=== PATIENT | male | born 1955 | race Caucasian/White ===

== ENCOUNTER → 2018-01-12 16:39 | Outpatient (REF) | payer OTHER, SELFPAY ==
[2018-01-12 20:46] LABS: ALT 34 U/L (12-78); AST 28 U/L (15-37); Albumin 4.2 g/dL (3.4-5.0); Alkaline Phosphatase 64 U/L (46-116); Anion Gap 7.7 mmol/L (3-11); BUN 10 mg/dL (7-18); Bilirubin, Total 0.2 mg/dL (0.2-1.0); CO2 29.3 mmol/L (21.0-32.0); CREATININE 1.04 mg/dL (0.70-1.30); Calcium 9.1 mg/dL (8.5-10.1); Chloride 102 mmol/L (98-107); Creatine Kinase 353 U/L (39-308); Glucose 93 mg/dL (70-100); Potassium 4.5 mmol/L (3.5-5.1); Sodium 139 mmol/L (136-145); Total Protein 7.3 g/dL (6.4-8.2)
[2018-01-16 11:31] LABS: PSA, Screening 0.5 ng/ml (0-4.5)
== END ==
LOC: NCHCN 16:39
PROVIDERS: PCP Family Medicine; Visit Provider Family Medicine
DX: Z00.00 Encounter for general adult medical examination without abnormal findings (principal); E78.5 Hyperlipidemia, unspecified; I10 Essential (primary) hypertension
CPT/HCPCS: 80053; 82550; 84153

== ENCOUNTER 2018-08-08 02:45 | Outpatient (CLI) | payer OTHER, SELFPAY ==
[2018-08-08 09:53] LABS: Cholesterol 151 mg/dL (50-200); HDL Cholesterol 45 mg/dL (40-60); LDL CHOLESTEROL 81 mg/dL (<100); Triglyceride 133 mg/dL (30-150)
[2018-08-08 10:08] LABS: Creatine Kinase 131 U/L (39-308)
== END 2018-08-08 03:05 ==
PROVIDERS: PCP Family Medicine; Visit Provider Family Medicine
DX: I25.10 Atherosclerotic heart disease of native coronary artery without angina pectoris (principal); E78.5 Hyperlipidemia, unspecified
CPT/HCPCS: 36415; 80061; 82550; 83721

== ENCOUNTER 2019-02-22 02:23 | Outpatient (CLI) | payer OTHER, SELFPAY ==
[2019-02-22 13:23] LABS: ALT 40 U/L (16-63); AST 21 U/L (15-37); Albumin 4.2 g/dL (3.4-5.0); Alkaline Phosphatase 58 U/L (46-116); Anion Gap 7.9 mmol/L (3-11); BUN 16 mg/dL (7-18); Bilirubin, Total 0.4 mg/dL (0.2-1.0); CO2 30.1 mmol/L (21.0-32.0); CREATININE 1.07 mg/dL (0.70-1.30); Calcium 9.5 mg/dL (8.5-10.1); Calculated LDL 104 mg/dL; Chloride 102 mmol/L (98-107); Cholesterol 188 mg/dL (50-200); Glucose 99 mg/dL (70-100); HDL Cholesterol 70 mg/dL (40-60); Potassium 4.9 mmol/L (3.5-5.1); Sodium 140 mmol/L (136-145); Total Protein 7.3 g/dL (6.4-8.2); Triglyceride 72 mg/dL (30-150)
[2019-02-23 10:36] LABS: PSA, Screening 0.6 ng/ml (0-4.5)
== END 2019-02-22 02:43 ==
PROVIDERS: PCP Family Medicine; Visit Provider Family Medicine
DX: Z00.00 Encounter for general adult medical examination without abnormal findings (principal); Z13.220 Encounter for screening for lipoid disorders; Z13.228 Encounter for screening for other metabolic disorders; Z12.5 Encounter for screening for malignant neoplasm of prostate
CPT/HCPCS: 36415; 80053; 80061; 84153

== ENCOUNTER 2020-06-05 09:38 | Outpatient (REF) | payer OTHER, SELFPAY ==
[2020-06-05 18:58] LABS: ALT 41 U/L (16-63); AST 26 U/L (15-37); Albumin 4.2 g/dL (3.4-5.0); Alkaline Phosphatase 57 U/L (46-116); Anion Gap 9.4 mmol/L (3-11); BUN 16 mg/dL (7-18); Bilirubin, Total 0.2 mg/dL (0.2-1.0); CO2 27.6 mmol/L (21.0-32.0); Chloride 102 mmol/L (98-107); Glucose 85 mg/dL (74-106); Potassium 3.9 mmol/L (3.5-5.1); Sodium 139 mmol/L (136-145); Total Protein 7.4 g/dL (6.4-8.2)
[2020-06-06 23:14] LABS: PSA, Screening 0.6 ng/mL (0.0-4.5)
== END 2020-06-05 09:58 ==
LOC: NCHCN 09:38
PROVIDERS: PCP Family Medicine; Visit Provider Family Medicine
DX: Z00.00 Encounter for general adult medical examination without abnormal findings (principal)
CPT/HCPCS: 80053; 84153

== ENCOUNTER 2022-06-15 09:45 | Outpatient (REF) | payer MEDICARE, BC, SELFPAY ==
[2022-06-15 16:44] LABS: HCT 38.4 % (40.0-50.0); HGB 12.9 g/dL (13.5-17.5); MCH 32.3 pg (27.0-33.0); MCHC 33.6 % (32.0-36.0); MCV 96 fL (80-95); MPV 12.8 fL (8.0-11.0); Platelet Count 215 10^3/uL (130-400); RBC 3.99 10^6/uL (4.36-5.78); RDW 13.7 % (11.8-14.1); RDW-SD 48.7 fL; WBC 5.47 10^3/uL (4.4-10.8)
[2022-06-15 16:59] LABS: ALT 29 U/L (16-63); AST 33 U/L (15-37); Albumin 4.4 g/dL (3.4-5.0); Alkaline Phosphatase 59 U/L (46-116); Anion Gap 6.9 mmol/L (3-11); BUN 19 mg/dL (7-18); Bilirubin, Total 0.4 mg/dL (0.2-1.0); CO2 30.1 mmol/L (21.0-32.0); CREATININE 1.1 mg/dL (0.70-1.30); Calcium 9.1 mg/dL (8.5-10.1); Calculated LDL 70 mg/dL (<100); Chloride 102 mmol/L (98-107); Cholesterol 154 mg/dL (<200); Estimated GFR 74.96 (mL/min/1.73m2); Glucose 104 mg/dL (74-106); HDL Cholesterol 69 mg/dL (40-60); Potassium 4.8 mmol/L (3.5-5.1); Sodium 139 mmol/L (136-145); Total Protein 7.7 g/dL (6.4-8.2); Triglyceride 75 mg/dL (<150)
[2022-06-16 10:37] LABS: Vitamin B12 274 pg/mL (193-986)
[2022-06-16 18:15] LABS: PSA, Screening 0.7 ng/mL (<=4.5)
[2022-06-16 21:03] LABS: Estimated Average Glucose 105 mg/dL; Hemoglobin A1C 5.3 % (<5.7)
== END 2022-06-15 09:46 | disposition home or self-care (01) ==
LOC: NCHCN 09:45
PROVIDERS: PCP Family Medicine; Visit Provider Family Medicine
DX: I25.10 Atherosclerotic heart disease of native coronary artery without angina pectoris (principal); E78.5 Hyperlipidemia, unspecified; I10 Essential (primary) hypertension; D64.9 Anemia, unspecified; Z12.5 Encounter for screening for malignant neoplasm of prostate; Z79.899 Other long term (current) drug therapy
CPT/HCPCS: 80053; 80061; 84153; 85027; 82607; 82746; 83036

== ENCOUNTER 2023-06-21 12:36 | Outpatient (REF) | payer MEDICARE, OTHER, SELFPAY ==
[2023-06-21 15:25] LABS: Abs Immature Grans 0.02 10^3/uL (0.0-0.06); Absolute Basophil Count 0.06 10^3/uL (0.0-0.2); Absolute Eosinophil Count 0.09 10^3/uL (0.0-0.7); Absolute Lymphocyte Count 1.51 10^3/uL (1.2-3.4); Absolute Monocyte Count 0.52 10^3/uL (0.1-0.8); Absolute Neutrophil Count 4.95 10^3/uL (1.2-6.7); Basophils % 0.8; Eosinophils % 1.3; HCT 39.7 % (40.0-50.0); HGB 12.9 g/dL (13.5-17.5); Immature Grans % 0.3; Lymphocytes % 21.1; MCHC 32.5 % (32.0-36.0); MCV 95 fL (80-95); MPV 11.5 fL (8.0-11.0); Monocytes % 7.3; Neutrophils % 69.2; Platelet Count 232 10^3/uL (130-400); RBC 4.16 10^6/uL (4.36-5.78); RDW 13.3 % (11.8-14.1); RDW-SD 46.8 fL; WBC 7.15 10^3/uL (4.4-10.8)
[2023-06-21 15:54] LABS: Hemoglobin A1C 5.7 % (<5.7)
[2023-06-21 16:03] LABS: ALT 33 U/L (16-63); AST 26 U/L (15-37); Albumin 4.1 g/dL (3.4-5.0); Alkaline Phosphatase 52 U/L (46-116); Anion Gap 4.7 mmol/L (3-11); BUN 27 mg/dL (7-18); Bilirubin, Total 0.5 mg/dL (0.2-1.0); CO2 29.3 mmol/L (21.0-32.0); CREATININE 1.7 mg/dL (0.70-1.30); Calcium 9.4 mg/dL (8.5-10.1); Calculated LDL 123 mg/dL (<100); Chloride 102 mmol/L (98-107); Cholesterol 214 mg/dL (<200); Estimated GFR 44.18 (mL/min/1.73m2); Glucose 108 mg/dL (74-106); HDL Cholesterol 66 mg/dL (40-60); Potassium 5.3 mmol/L (3.5-5.1); Sodium 136 mmol/L (136-145); Total Protein 7.8 g/dL (6.4-8.2); Triglyceride 128 mg/dL (<150)
== END 2023-06-21 12:37 | disposition home or self-care (01) ==
LOC: NCHCN 12:36
PROVIDERS: PCP Family Medicine; Visit Provider Family Medicine
DX: D64.9 Anemia, unspecified (principal); I25.10 Atherosclerotic heart disease of native coronary artery without angina pectoris; R73.09 Other abnormal glucose
CPT/HCPCS: 80053; 80061; 83036; 85025

== ENCOUNTER → 2023-07-12 12:56 | Outpatient (BNVA) | payer MEDICARE, OTHER, SELFPAY | PROVIDERS: PCP Family Medicine; Referring Provider Family Medicine; Visit Provider Nurse Practitioner Gerontology | DX: R33.8 Other retention of urine (principal); N13.30 Unspecified hydronephrosis | CPT/HCPCS: 51798; 81003; 99205 ==

== ENCOUNTER → 2023-07-22 00:33 | Outpatient (CLI) | payer MEDICARE, OTHER, SELFPAY ==
--- NOTE | 2023-07-22 | DI.US_ITS ---
Exam(s) US RENAL EXAM: US RENAL CLINICAL HISTORY: HYDRONEPHROSIS, N13.30. TECHNIQUE: Jack scale, color and spectral Doppler were used. COMPARISON: CT CT ANGIOGRAM CHEST WITH ABD PELVIS W CONTRAST BD from 12/13/2021 FINDINGS: Renal size in cm: Right: 9.4. Left: 12.1. Echogenicity: Normal. Hydronephrosis: There is moderate left hydronephrosis. There is no right hydronephrosis. Cyst or mass: No. Nephrolithiasis: No. Other findings: None. Bladder:There is diffuse prominent thickening of the wall of the urinary bladder. Ureteral jets: Right: Visualized and unremarkable. Left: Visualized and unremarkable. Prevoid vol:214 cc Postvoid vol:187 cc Prostate: 56 cc Renal color flow: Symmetric and within normal limits. IMPRESSION: 1. Enlarged prostate gland. 2. Diffuse thickening of the wall of the urinary bladder. This may be due to bladder outlet obstruct ion. 3. Large postvoid urinary bladder volume. 4. Moderate left hydronephrosis. DATA REPOSITORY:
== END ==
PROVIDERS: PCP Family Medicine; Visit Provider Family Medicine
DX: N13.30 Unspecified hydronephrosis (principal); N40.1 Benign prostatic hyperplasia with lower urinary tract symptoms; R33.9 Retention of urine, unspecified; N32.89 Other specified disorders of bladder
CPT/HCPCS: 76770

== ENCOUNTER → 2023-07-25 09:50 | Outpatient (BNVA) | payer MEDICARE, OTHER, SELFPAY | PROVIDERS: PCP Family Medicine; Referring Provider Family Medicine; Visit Provider Nurse Practitioner Gerontology | DX: R33.8 Other retention of urine (principal); N13.30 Unspecified hydronephrosis | CPT/HCPCS: 51798; 81003; 99213 ==

== ENCOUNTER 2023-07-25 12:44 | Outpatient (REF) | payer MEDICARE, OTHER, SELFPAY | END 2023-07-25 12:45 | disposition home or self-care (01) | LOC: LBN 12:44 | PROVIDERS: PCP Family Medicine; Visit Provider Nurse Practitioner Gerontology | DX: R31.9 Hematuria, unspecified (principal) | CPT/HCPCS: 87077; 87086; 87186 ==

== ENCOUNTER → 2023-08-01 02:26 | Outpatient (CLI) | payer MEDICARE, OTHER, SELFPAY ==
--- NOTE | 2023-08-01 06:45 | DI.CT_ITS ---
Exam(s) CT ABDOMEN PELVIS WO/W EXAM: CT ABDOMEN PELVIS WO/W CLINICAL HISTORY: left hydro; new gross hematuria, incomplete emptying bladder. TECHNIQUE: Imaging Protocol: Axial computed tomography images with coronal and sagittal reformatted images were created and reviewed. Images were performed from the lung bases through the ischial tuberosities before IV contrast and fol lowing IV contrast using a 70 second delay, followed by 7 minutes delayed images. CONTRAST MATERIAL: Intravenous: Omnipaque 350 Contrast volume:100 cc Oral: no COMPARISON: CT CT ANGIOGRAM CHEST WITH ABD PELVIS W CONTRAST BD from 12/13/2021 FINDINGS: ABDOMEN: Lung Bases: Small hiatal hernia. Liver: Normal density. No measurable mass. Gallbladder and biliary tract: No radiodense calculus or dilation. Pancreas: Normal density, no abnormal calcifications or inflammatory process. Spleen: Normal. Kidneys: Normal size, contour and axis. No radiodense stones. Moderate left hydronephrosis. The lef t ureter is again noted to be dilated and tortuous down to the level of the ureterovesical junction.. No obstructing stone or mass visible. Improvement in the degree of hydronephrosis when compared wi th the prior exam. No right hydronephrosis.. No suspicious masses seen. Adrenal glands: No masses seen. Lymph nodes: Within normal limits. Abdominal Aorta: Abdominal portion non-dilated. Atherosclerotic calcification. 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 Severe stenosis distal left common iliac artery severe stenosis proxim al superficial femoral arteries. Soft tissues: Small fatty containing right inguinal hernia. No bowel entering the hernia. PELVIS: Bladder: Marked wall thickening and trabeculation. Calcification within left sided bladder wall, unc hanged. No evidence of a mass. Bowel: Diverticulosis. No obstruction or bowel wall thickening. Appendix normal. Peritoneal cavity: No ascites, collection or mesenteric inflammatory response. Soft tissues: Bones: Unremarkable for age.. Reproductive organs: Mildly enlarged nodular prostate gland. IMPRESSION: Moderate left hydronephrosis with improvement from the prior exam. No obstructing stone or mass. No right hydronephrosis. Marked bladder wall thickening and trabeculation. Enlarged prostate. RADIATION DOSE DELIVERED: 3,733.31mGy.cm Total DLP DATA REPOSITORY: All CT scans at this facility are submitted to the National Radiology Data Registry (NRDR) Dose Index Registry (DIR) with the [employer] ([employer]). RADIATION OPTIMIZATION: All CT scans at this facility use at least one of these dose optimization te chniques: automated exposure control; mA and/or kV adjustment per patient size (includes targeted exa ms where dose is matched to clinical indication); or iterative reconstruction.
[2023-08-01 07:36] LABS: CREATININE 1.6 mg/dL (0.70-1.30); Estimated GFR 47.23 (mL/min/1.73m2)
[2023-08-01] MEDS: Normal Saline - Diluent 50 ML VIAL 100 ML IJ (08:06)
[2023-08-01] MEDS: Omnipaque 350 MG/ML 500 ML BTL-Imaging package IJ (08:07)
== END ==
PROVIDERS: PCP Family Medicine; Visit Provider Nurse Practitioner Gerontology
DX: R31.9 Hematuria, unspecified (principal); N13.39 Other hydronephrosis
CPT/HCPCS: 74178; 82565

== ENCOUNTER → 2023-08-29 09:56 | Outpatient (BNVA) | payer MEDICARE, OTHER, SELFPAY | PROVIDERS: PCP Family Medicine; Referring Provider Family Medicine; Visit Provider Nurse Practitioner Gerontology | DX: R33.8 Other retention of urine (principal); N13.30 Unspecified hydronephrosis | CPT/HCPCS: 51798; 99213 ==

== ENCOUNTER 2023-09-01 17:11 | Outpatient (REF) | payer MEDICARE, OTHER, SELFPAY ==
[2023-09-01 13:53] LABS: Bilirubin Negative (Negative); Blood Trace-intact (Negative); Clarity Cloudy (Clear); Glucose Negative (Negative); Ketones Negative (Negative); Leukocyte Esterase Moderate (Negative); Nitrite Negative (Negative); Specific Gravity 1.015 (1.005-1.025); Urobilinogen 0.2 mg/dL (Up to 0.2); pH 5.5 (5-8)
[2023-09-01 13:59] LABS: Bacteria Rare HPF (Negative); C & S Indicated? C&S Done As Ordered; Casts 0-2 Hyaline LPF (Negative); Crystals Negative HPF (Negative); Epithelial Cells Rare HPF (Negative); Mucus Negative (Negative); RBC 0-2 HPF (0-2); WBC >50 HPF (0-5)
== END 2023-09-01 17:12 | disposition home or self-care (01) ==
LOC: LBN 17:11
PROVIDERS: PCP Family Medicine; Visit Provider Nurse Practitioner Gerontology
DX: R33.9 Retention of urine, unspecified (principal)
CPT/HCPCS: 87077; 81003; 81015; 87086; 87186

== ENCOUNTER → 2023-12-08 00:06 | Outpatient (CLI) | payer MEDICARE, OTHER, SELFPAY ==
[2023-12-08 07:54] LABS: BUN 31 mg/dL (7-18); CREATININE 1.4 mg/dL (0.70-1.30); Estimated GFR 55.43 (mL/min/1.73m2)
--- NOTE | 2023-12-08 09:29 | DI.US_ITS ---
Exam(s) US RENAL EXAM: US RENAL CLINICAL HISTORY: monitoring hydro, N13.30; retention of urine, R33.9. TECHNIQUE: Jack scale, color and spectral Doppler were used. COMPARISON: US US RENAL from 07/22/[address] ABDOMEN PELVIS WO/W from 08/01/2023 FINDINGS: Right kidney: 9.2cm Echogenicity: Normal Hydronephrosis: No Cyst or mass: No Nephrolithiasis: No Left kidney: 11.3cm Echogenicity: Normal Hydronephrosis: Moderate left hydronephrosis appears stable from prior exam. Cyst or mass: No Nephrolithiasis: No Bladder:Diffuse marked wall thickening and trabeculation. Ureteral jets were not visualized. No b ladder calculi identified. Prevoid vol:631 cc Postvoid vol:453 cc Prostate volume measured at 26 cc. IMPRESSION: Stable moderate left hydronephrosis. Bladder wall thickening and trabeculation. Large postvoid resi dual volume in the bladder. DATA REPOSITORY:
== END ==
PROVIDERS: PCP Family Medicine; Visit Provider Nurse Practitioner Gerontology
DX: N13.30 Unspecified hydronephrosis (principal); R33.9 Retention of urine, unspecified; N32.89 Other specified disorders of bladder
CPT/HCPCS: 36415; 76770; 84520; 82565

== ENCOUNTER → 2023-12-15 09:44 | Outpatient (BNVA) | payer MEDICARE, OTHER, SELFPAY | PROVIDERS: PCP Family Medicine; Visit Provider Nurse Practitioner Gerontology | DX: R33.8 Other retention of urine (principal); N13.30 Unspecified hydronephrosis | CPT/HCPCS: 99213 ==

== ENCOUNTER 2023-12-20 11:00 | Outpatient (REF) | payer MEDICARE, OTHER, SELFPAY ==
[2023-12-20 15:39] LABS: HCT 40.6 % (40.0-50.0); HGB 13.4 g/dL (13.5-17.5); MCH 31.2 pg (27.0-33.0); MCV 94 fL (80-95); MPV 11.4 fL (8.0-11.0); Platelet Count 196 10^3/uL (130-400); RDW 14.5 % (11.8-14.1); RDW-SD 50.4 fL; WBC 7.05 10^3/uL (4.4-10.8)
[2023-12-20 16:28] LABS: Ferritin 40 ng/mL (26-388); Vitamin B12 913 pg/mL (193-986)
[2023-12-20 16:35] LABS: Folate > 20.0 ng/mL (8.6-20.0)
[2023-12-20 23:18] LABS: PSA, Screening 1.3 ng/mL (<=4.5)
== END 2023-12-20 11:01 | disposition home or self-care (01) ==
LOC: NCHCN 11:00
PROVIDERS: PCP Family Medicine; Visit Provider Family Medicine
DX: D64.9 Anemia, unspecified (principal); I10 Essential (primary) hypertension; N40.1 Benign prostatic hyperplasia with lower urinary tract symptoms; Z79.899 Other long term (current) drug therapy; Z12.5 Encounter for screening for malignant neoplasm of prostate
CPT/HCPCS: 84153; 85027; 82607; 82728; 82746

== ENCOUNTER 2024-06-07 04:53 | Outpatient (CLI) | payer MEDICARE, OTHER, SELFPAY ==
[2024-06-07 08:40] LABS: BUN 23 mg/dL (7-18); CREATININE 1.4 mg/dL (0.70-1.30); Estimated GFR 55.43 (mL/min/1.73m2)
== END 2024-06-07 04:54 | disposition home or self-care (01) ==
LOC: LBO 04:54
PROVIDERS: PCP Family Medicine; Visit Provider Nurse Practitioner Gerontology
DX: N13.30 Unspecified hydronephrosis (principal); R33.9 Retention of urine, unspecified
CPT/HCPCS: 36415; 84520; 82565

== ENCOUNTER → 2024-06-19 08:13 | Outpatient (BNVA) | payer MEDICARE, OTHER, SELFPAY | PROVIDERS: PCP Family Medicine; Referring Provider Family Medicine; Visit Provider Nurse Practitioner Gerontology | DX: R33.8 Other retention of urine (principal); N13.30 Unspecified hydronephrosis | CPT/HCPCS: 99213 ==

== ENCOUNTER 2024-08-03 15:47 | Outpatient (REF) | payer MEDICARE, OTHER, SELFPAY ==
[2024-08-03 15:02] LABS: Bilirubin Negative (Negative); Blood Moderate (Negative); Clarity Clear (Clear); Glucose Negative (Negative); Ketones Negative (Negative); Leukocyte Esterase Moderate (Negative); Nitrite Negative (Negative); Specific Gravity 1.015 (1.005-1.025); Urobilinogen 0.2 mg/dL (Up to 0.2)
[2024-08-03 15:16] LABS: Bacteria Few HPF (Negative); C & S Indicated? C&S Done As Ordered; Casts Negative LPF (Negative); Crystals Negative HPF (Negative); Epithelial Cells Rare HPF (Negative); Mucus Negative (Negative); Other Cells Negative (Negative); WBC >50 HPF (0-5)
== END 2024-08-03 15:48 | disposition home or self-care (01) ==
LOC: LBN 15:47
PROVIDERS: PCP Family Medicine; Visit Provider Nurse Practitioner Gerontology
DX: R30.0 Dysuria (principal)
CPT/HCPCS: 87077; 81003; 81015; 87086; 87186

== ENCOUNTER 2024-08-24 15:37 | Outpatient (REF) | payer MEDICARE, OTHER, SELFPAY ==
[2024-08-24 15:52] LABS: Hemoglobin A1C 5.9 % (<5.7)
[2024-08-24 15:59] LABS: ALT 31 U/L (16-63); AST 30 U/L (15-37); Alkaline Phosphatase 67 U/L (46-116); BUN 31 mg/dL (7-18); Bilirubin, Total 0.6 mg/dL (0.2-1.0); CREATININE 1.4 mg/dL (0.70-1.30); Calcium 9.4 mg/dL (8.5-10.1); Chloride 102 mmol/L (98-107); Estimated GFR 55.09 (mL/min/1.73m2); Glucose 98 mg/dL (74-106); Sodium 138 mmol/L (136-145); Total Protein 7.6 g/dL (6.4-8.2)
== END 2024-08-24 15:38 | disposition home or self-care (01) ==
LOC: NCHCN 15:37
PROVIDERS: PCP Family Medicine; Visit Provider Family Medicine
DX: R73.03 Prediabetes (principal); I10 Essential (primary) hypertension
CPT/HCPCS: 80053; 83036

== ENCOUNTER 2024-12-18 02:59 | Outpatient (CLI) | payer MEDICARE, OTHER, SELFPAY ==
[2024-12-18 08:20] LABS: BUN 23 mg/dL (7-18); Estimated GFR 66.28 (mL/min/1.73m2)
[2024-12-18 18:25] LABS: PSA, Diagnostic 1.1 ng/mL (<=4.5)
== END 2024-12-18 03:00 | disposition home or self-care (01) ==
LOC: LBO 02:59
PROVIDERS: PCP Family Medicine; Visit Provider Nurse Practitioner Gerontology
DX: N13.30 Unspecified hydronephrosis (principal); R33.9 Retention of urine, unspecified
CPT/HCPCS: 36415; 84520; 82565; 84153

== ENCOUNTER 2024-12-21 00:11 | Outpatient (CLI) | payer MEDICARE, OTHER, SELFPAY ==
--- NOTE | 2024-12-21 07:15 | DI.US_ITS ---
Exam(s) US RENAL EXAM: US RENAL CLINICAL HISTORY: monitoring left hydronephrosis,incomplete emptying of bladder,r33.9. TECHNIQUE: Jack scale imaging and color doppler were used. COMPARISON: CT CT ABDOMEN PELVIS WO/W from 08/01/2023 US US RENAL from 12/08/2023 FINDINGS: Right kidney: 9.2cm, mild parenchymal thinning. Echogenicity: Normal Hydronephrosis: No Cyst or mass: No Nephrolithiasis: No Left kidney: 11.5cm Echogenicity: Normal Hydronephrosis: No Cyst or mass: No Nephrolithiasis: No Bladder:Mild wall thickening and trabeculation. Ureteral jets were not visualized. Prevoid vol:776 cc Postvoid vol:587 cc Prostate volume 27 cc IMPRESSION: No evidence of left hydronephrosis. Mildly thick-walled bladder with trabeculation. Elevated postvoid residual. DATA REPOSITORY:
== END 2024-12-21 00:31 ==
PROVIDERS: PCP Family Medicine; Visit Provider Nurse Practitioner Gerontology
DX: N13.30 Unspecified hydronephrosis (principal); N32.89 Other specified disorders of bladder
CPT/HCPCS: 76770

== ENCOUNTER → 2024-12-25 08:44 | Outpatient (BNVA) | payer MEDICARE, OTHER, SELFPAY | PROVIDERS: PCP Family Medicine; Visit Provider Nurse Practitioner Gerontology | DX: R33.9 Retention of urine, unspecified (principal); N13.30 Unspecified hydronephrosis | CPT/HCPCS: 99214 ==